=== PATIENT | female | born 1995 | race Two or more races ===

== ENCOUNTER 2018-08-20 20:56 | Inpatient (IN) | payer OTHER ==
[~2018-08-20] VITALS: Ht 170.2 cm; Wt 77.1 kg
[2018-08-20] MEDS ORDERED: PRENATAL TABLE1 EACH PO (23:21)
== END 2018-08-23 11:41 | disposition home or self-care (01) | DRG 798 ==
LOC: LDR 20:56 → OB/GYN 20:56
PROVIDERS: ADMIT Specialist
PROC: 10E0XZZ Delivery of Products of Conception, External Approach (ICD-10-PCS; principal; 2018-08-20)
PROC: 4A1HXCZ Monitoring of Products of Conception, Cardiac Rate, External Approach (ICD-10-PCS; 2018-08-20)
PROC: 0UB70ZZ Excision of Bilateral Fallopian Tubes, Open Approach (ICD-10-PCS; 2018-08-20)
PROC: 0UQGXZZ Repair Vagina, External Approach (ICD-10-PCS; 2018-08-20)
PROC: 4A033R1 Measurement of Arterial Saturation, Peripheral, Percutaneous Approach (ICD-10-PCS; 2018-08-20)
DX: O71.4 Obstetric high vaginal laceration alone (principal); Z37.0 Single live birth; Z3A.38 38 weeks gestation of pregnancy; Z22.330 Carrier of Group B streptococcus; Z30.2 Encounter for sterilization